=== PATIENT | male | born 1955 | race Asian ===

== ENCOUNTER 2016-06-08 10:49 | Emergency (ER) | payer SELFPAY ==
[~2016-06-08] VITALS: Ht 167.6 cm; Wt 69.5 kg
[~2016-06-08 10:49] MED LIST: FINA5TAB41 PO
[2016-06-08] MEDS ORDERED: LEVO100 PO (12:11)
[2016-06-08] MEDS ORDERED: ALLO100T PO (12:12)
[2016-06-08 13:27] VITALS: BP 133/68
== END 2016-06-08 15:24 | disposition left against medical advice (07) ==
LOC: EMS 10:51
DX: M25.562 Pain in left knee (principal); F17.210 Nicotine dependence, cigarettes, uncomplicated
CPT/HCPCS: 99281

== ENCOUNTER 2023-06-12 11:50 | Inpatient (IN) | payer OTHER ==
[~2023-06-12] VITALS: Ht 167.6 cm; Wt 87.1 kg
[~2023-06-12 11:50] MED LIST changes: +ALLO-97 PO; +LEVO100 PO
[2023-06-12 12:10] LABS: BASOPHILS % (AUTO) 0.6 % (0.0-2.0); EOSINOPHILS % (AUTO) 4.3 % (1.0-6.0); HEMATOCRIT 42.4 % (41-53); HEMOGLOBIN 13.8 g/dL (13.5-17.5); LYMPHOCYTES # (AUTO) 2.8 K/uL (1.0-4.8); MEAN CORPUSCULAR HEMOGLOBIN 28.7 pg (26.0-34.0); MEAN CORPUSCULAR HGB CONC 32.6 G/dL (31.0-37.0); MEAN CORPUSCULAR VOLUME 88 fL (80-100); MONOCYTES # (AUTO) 0.9 K/uL (0.1-1.0); MONOCYTES % (AUTO) 9.3 % (2.0-9.0); NEUTROPHILS # (AUTO) 5.5 K/uL (1.8-7.7); NEUTROPHILS % (AUTO) 56.8 % (40.0-70.0); PLATELET COUNT (AUTO) 248 K/uL (150-450); RED BLOOD CELL COUNT(AUTO) 4.82 MIL/uL (4.50-5.90); RED CELL DISTRIBUTION WIDTH 14.7 % (11.5-14.5); WHITE BLOOD COUNT (AUTO) 9.7 K/uL (4.5-11.0)
[2023-06-12 12:17] LABS: CALCIUM, TOTAL 8.8 mg/dL (8.8-10.5); CREATININE 1.33 mg/dL (0.60-1.30); POTASSIUM 3.6 mmol/L (3.5-5.1)
[2023-06-12 12:22] LABS: ALBUMIN 3.3 g/dL (3.4-5.0); BILIRUBIN,TOTAL 0.4 mg/dL (0.1-1.0); TOTAL PROTEIN, SERUM 7.9 g/dL (6.4-8.2)
[2023-06-12 12:25] LABS: TROPONIN I-HIGH SENSITIVITY 204 ng/L (<76)
[2023-06-12] MEDS ORDERED: ACETAMINOPHEN 325 MG TABLET PO PRN (12:30)
[2023-06-12] MEDS ORDERED: MORPHINE SULFATE 2 MG/ML SYRINGE IVP PRN (12:30)
[2023-06-12] MEDS ORDERED: DEXTROSE 50%-WATER 25 GM/50 ML SYRINGE IVP PRN (12:30)
[2023-06-12] MEDS ORDERED: INSULIN LISPRO 100 UNITS/ML SQ PRN (12:30)
[2023-06-12] MEDS: SODIUM CHLORIDE 0.9% 1,000 ML IV ONE (12:38)
[2023-06-12] MEDS: ATORVASTATIN CALCIUM 40 MG TABLET PO SCH (12:38)
[2023-06-12 12:43] LABS: THYROID STIMULATING HORMONE 3.28 uIU/mL (0.36-3.74)
[2023-06-12 13:37] LABS: TROPONIN I-HIGH SENSITIVITY 983 ng/L (<76)
[2023-06-12] MEDS ORDERED: HEPARIN SODIUM,PORCINE 5,000 UNITS/ML VIAL IVP ONE (14:00)
[2023-06-12] MEDS ORDERED: HEPARIN SODIUM,PORCINE 5,000 UNITS/ML VIAL IVP PRN (14:00)
[2023-06-12] MEDS: HEPARIN SODIUM,PORCINE 5,000 UNITS/ML VIAL IVP ONE (14:05)
[2023-06-12 14:09] LABS: APPEARANCE,URINE CLEAR (CLEAR); BILIRUBIN,URINE NEGATIVE (NEGATIVE); COLOR,URINE COLORLESS (YELLOW); GLUCOSE, URINE (UA) >=1000 mg/dL (NEGATIVE); KETONES,URINE NEGATIVE (NEGATIVE); LEUKOCYTE ESTERASE ,URINE NEGATIVE (NEGATIVE); NITRATE,URINE NEGATIVE (NEGATIVE); OCCULT BLOOD,URINE NEGATIVE (NEGATIVE); PH,URINE 5.5 (5.0-8.0); PROTEIN,URINE NEGATIVE (NEGATIVE); SPECIFIC GRAVITIY, URINE 1.016 (1.003-1.030); UROBILINOGEN,URINE <=1.0 mg/dL (<=1.0)
[2023-06-12 14:14] LABS: BACTERIA,URINE None Seen /HPF (None Seen); RBC,URINE None Seen /HPF (0-2); WBC,URINE None Seen /HPF (0-5)
[2023-06-12] MEDS: HEPARIN SODIUM 25000 UNITS/D5W 250 ML IV PRN (14:16)
[2023-06-12 15:09] LABS: TROPONIN I-HIGH SENSITIVITY 3033 ng/L (<76)
[2023-06-12 15:20] LABS: PROTHROMBIN TIME 10.9 SEC (9.4-11.6)
[2023-06-12] MEDS ORDERED: HEPARIN SODIUM,PORCINE 5,000 UNITS/ML VIAL SQ SCH (16:00)
[2023-06-12 19:58] VITALS: BP 131/81; PULSE 59; RESP 18; TEMP 98.1
[2023-06-12 20:58] LABS: TROPONIN I-HIGH SENSITIVITY 6252 ng/L (<76)
[2023-06-12] MEDS: TAMSULOSIN HCL 0.4 MG CAPSULE PO SCH (21:54)
[2023-06-12] MEDS: DOCUSATE SODIUM 100 MG CAPSULE PO SCH (21:55)
[2023-06-12] MEDS: FAMOTIDINE 20 MG TABLET PO SCH (21:55)
[2023-06-12] MEDS: HEPARIN SODIUM,PORCINE 5,000 UNITS/ML VIAL IVP PRN (22:58)
[2023-06-13] VITALS (13 sets, daily range): BP systolic 114–138; BP diastolic 65–90; PULSE 59–79; RESP 17–20; TEMP 97.7–98.5
[2023-06-13] MEDS: OxyCODONE HCL/ACETAMINOPHEN 5-325 MG TABLET PO PRN (01:02)
[2023-06-13 07:55] LABS: BASOPHILS % (AUTO) 0.4 % (0.0-2.0); EOSINOPHILS % (AUTO) 4.4 % (1.0-6.0); HEMATOCRIT 40.2 % (41-53); HEMOGLOBIN 13.1 g/dL (13.5-17.5); LYMPHOCYTES % (AUTO) 25.8 % (22.0-44.0); MEAN CORPUSCULAR HEMOGLOBIN 28.8 pg (26.0-34.0); MEAN CORPUSCULAR HGB CONC 32.6 G/dL (31.0-37.0); MEAN CORPUSCULAR VOLUME 88 fL (80-100); MONOCYTES % (AUTO) 8.2 % (2.0-9.0); NEUTROPHILS # (AUTO) 7.2 K/uL (1.8-7.7); NEUTROPHILS % (AUTO) 61.2 % (40.0-70.0); PLATELET COUNT (AUTO) 230 K/uL (150-450); RED BLOOD CELL COUNT(AUTO) 4.56 MIL/uL (4.50-5.90); RED CELL DISTRIBUTION WIDTH 14.6 % (11.5-14.5); WHITE BLOOD COUNT (AUTO) 11.8 K/uL (4.5-11.0)
[2023-06-13] MEDS ORDERED: HEPARIN SODIUM 1000 UNITS/NS 1,000 ML ONE (10:26)
[2023-06-13] MEDS ORDERED: IOHEXOL 300 MG/ML 100 ML VIAL ONE (10:26)
[2023-06-13] MEDS ORDERED: LIDOCAINE/PF 1% 30 ML VIAL ONE (10:26)
[2023-06-13] MEDS ORDERED: SODIUM BICARBONATE 50 MEQ/50 ML VIAL ONE (10:26)
[2023-06-13] MEDS ORDERED: VERAPAMIL HCL 2.5 MG/ML 2 ML VIAL ONE (11:45)
[2023-06-13] MEDS ORDERED: NITROGLYCERIN 50 MG/D5% WATER 250 ML ONE (11:45)
[2023-06-13] MEDS ORDERED: MIDAZOLAM HCL 2 MG/2 ML VIAL ONE (11:54)
[2023-06-13] MEDS ORDERED: FentaNYL CITRATE PF 100 MCG/2 ML VIAL ONE (11:54)
[2023-06-13] MEDS ORDERED: EPTIFIBATIDE 2 MG/ML 10 ML VIAL IVP ONE (12:38)
[2023-06-13] MEDS: LIDOCAINE 1% 30 ML/SOD BICARB 8.4% 4 ML SQ ONE (12:49)
[2023-06-13] MEDS: HEPARIN SODIUM 1000 UNITS/NS 1,000 ML IARTER ONE (12:50)
[2023-06-13] MEDS: VERAPAMIL HCL 2.5 MG/ML 2 ML VIAL IARTER ONE (12:50)
[2023-06-13] MEDS: EPTIFIBATIDE 2 MG/ML 10 ML VIAL IVP ONE (12:51)
[2023-06-13] MEDS: NITROGLYCERIN/D5W 50 MG/250 ML IV BOTTLE IARTER ONE (12:51)
[2023-06-13] MEDS: FentaNYL CITRATE PF 100 MCG/2 ML VIAL IVP ONE ×2 (12:52→13:17)
[2023-06-13] MEDS: MIDAZOLAM HCL 2 MG/2 ML VIAL IVP ONE ×2 (12:52→13:17)
[2023-06-13] MEDS ORDERED: IOHEXOL 300 MG/ML 50 ML VIAL ONE (13:13)
[2023-06-13] MEDS: IOHEXOL 300 MG/ML 100 ML VIAL IARTER ONE ×2 (13:17→13:18)
[2023-06-13] MEDS: HEPARIN SODIUM,PORCINE 1,000 UNITS/ML 10 ML VIAL IVP ONE (13:18)
[2023-06-13] MEDS: VERAPAMIL HCL 2.5 MG/ML 2 ML VIAL ICOR ONE (13:23)
[2023-06-13] MEDS: NITROGLYCERIN/D5W 50 MG/250 ML IV BOTTLE ICOR ONE (13:24)
[2023-06-13] MEDS: IOHEXOL 300 MG/ML 50 ML VIAL IARTER ONE ×2 (13:32→13:55)
[2023-06-13] MEDS: ASPIRIN 325 MG TABLET PO ONE (13:43)
[2023-06-13] MEDS: TICAGRELOR 90 MG TABLET PO ONE (13:43)
[2023-06-13] MEDS: TICAGRELOR 90 MG TABLET PO SCH (21:06)
[2023-06-14 00:37] VITALS: BP 129/81; PULSE 76; RESP 20; TEMP 98
[2023-06-14 02:36] LABS: GLUCOMETER DEV NAME(LOC) 5N.2C; GLUCOSE,POINT OF CARE 139 MG/DL (70-110)
[2023-06-14] MEDS: ASPIRIN 81 MG CHEWABLE TABLET PO SCH (08:47)
[2023-06-14 08:49] VITALS: BP 134/84; PULSE 91; RESP 19; TEMP 97.9
[2023-06-14] MEDS ORDERED: ATOR40TA71 PO (10:59)
[2023-06-14] MEDS ORDERED: TICA90TA PO (10:59)
[2023-06-14] MEDS ORDERED: ASPI-1450 PO (10:59)
[2023-06-14] MEDS ORDERED: EMPA10TA3 PO (11:03)
[2023-06-16 11:52] LABS: GLUCOMETER DEV NAME(LOC) 5S.2C; GLUCOSE,POINT OF CARE 135 MG/DL (70-110)
[2023-06-16 11:52] LABS: GLUCOMETER DEV NAME(LOC) 5S.2C; GLUCOSE,POINT OF CARE 141 MG/DL (70-110)
== END 2023-06-14 14:31 | disposition home or self-care (01) | DRG 322 ==
LOC: EMS 11:50 → 5S 16:47
PROVIDERS: ADMIT Internal Medicine; ATTEND Internal Medicine
PROC: 027035Z Dilation of Coronary Artery, One Artery with Two Drug-eluting Intraluminal Devices, Percutaneous Approach (ICD-10-PCS; principal; 2023-06-13)
PROC: B2111ZZ Fluoroscopy of Multiple Coronary Arteries using Low Osmolar Contrast (ICD-10-PCS; 2023-06-13)
PROC: 4A023N7 Measurement of Cardiac Sampling and Pressure, Left Heart, Percutaneous Approach (ICD-10-PCS; 2023-06-13)
PROC: B240ZZ3 Ultrasonography of Single Coronary Artery, Intravascular (ICD-10-PCS; 2023-06-13)
DX: I21.4 Non-ST elevation (NSTEMI) myocardial infarction (principal); N17.9 Acute kidney failure, unspecified; E66.9 Obesity, unspecified; N40.0 Benign prostatic hyperplasia without lower urinary tract symptoms; I10 Essential (primary) hypertension; E78.5 Hyperlipidemia, unspecified; E03.9 Hypothyroidism, unspecified; E11.9 Type 2 diabetes mellitus without complications; Z87.891 Personal history of nicotine dependence; Z79.84 Long term (current) use of oral hypoglycemic drugs
CPT/HCPCS: 71045; 75960; 80053; 81001; 82962; 83036; 84443; 84484; 85025; 85610; 85730; 92920; 92928; 93005; 93306; 99291; J1327; J1644; J2250; J3010; J3490; J7030; Q9967; 36415-L1; 36415-TC; Z7610